=== PATIENT | female | born 1980 | race African-American/Black ===

== ENCOUNTER 2019-06-11 17:44 | Emergency (ER) | payer SELFPAY ==
[~2019-06-11 17:44] MED LIST: Iopamidol-370 76% 500 ML 1 ML ONE
[2019-06-11 19:03] LABS: #Eosinphils 0.2 thou/uL (0.0-0.7); #Lymphocytes 2.3 thou/uL (1.20-3.40); #Monocytes 0.5 thou/uL (0.11-0.59); #Neutrophils 3.8 thou/uL (1.40-6.50); %Basophils 0.1 % (0.0-1.0); %Eosinophils 3.1 % (0.0-10.0); %Lymphocytes 33.7 % (21.0-51.0); %Monocytes 7.1 % (0.0-10.0); Hemoglobin 12.3 g/dL (12.0-16.0); Mean Corpuscular HGB CONC 32.8 g/dL (32.0-36.0); Mean Corpuscular Hemoglobin 28.8 pg (27.0-31.0); Mean Corpuscular Volume 87.8 fL (78.0-98.0); Mean Platelet Volume 8.6 fL (7.4-10.4); Platelet Count 178 thou/uL (130-400); RBC Distribution Width 14.5 % (11.5-14.5); Red Blood Cell (RBC) Count 4.26 mill/uL (4.20-5.40); White Blood Cell (WBC) Count 6.8 thou/uL (4.8-10.8)
--- NOTE | 2019-06-11 19:03 | RAD ---
Abdomen one view HISTORY: Abdominal pain. FINDINGS: Large amount of stool overlies the colon. Small bowel gas pattern is nonspecific. Phlebolit hs project over the pelvis. No radiopaque foreign bodies. IMPRESSION: Constipation.
[2019-06-11 19:10] LABS: BHCG - Serum Negative (NEGATIVE); Pregs Control Background? CLEAR/WHITE (CLR/WHITE); Pregs Control Bar Appear? YES (CONTROL BAR)
[2019-06-11 19:14] LABS: MDiff Complete? YES; Platelet Clumps SLIGHT; Platelet Morphology Comment Appears Adequate; RBC Morphology Normal
[2019-06-11] MEDS ORDERED: Ondansetron ODT 4 MG TAB ONE (19:21)
[2019-06-11 19:26] LABS: ALT (SGPT) 18 U/L (8-55); AST (SGOT) 25 U/L (5-34); Albumin 3.9 g/dL (3.5-5.0); Alkaline Phosphatase 52 U/L (40-110); Anion Gap 16 mmol/L (10-20); BUN (Urea Nitrogen) 12 mg/dL (7.0-18.7); Bilirubin, Total 0.3 mg/dL (0.2-1.2); Calc. Creatinine Clearance 0 mL/min (70-130); Calcium 9.3 mg/dL (7.8-10.44); Carbon Dioxide 22 mmol/L (22-29); Chloride 104 mmol/L (98-107); Estimated GFR-MDRD 83; Globulin 4.6 g/dL (2.4-3.5); Glucose 77 mg/dL (70-105); Lipase 24 U/L (8-78); Potassium 5.6 mmol/L (3.5-5.1); Protein, Total 8.5 g/dL (6.0-8.3); Sodium 136 mmol/L (136-145)
[2019-06-11 19:31] LABS: Bilirubin Negative (Negative); Blood, Urine Negative (Negative); Clarity Clear (Clear); Glucose, Urine (Dipstick) Normal (Negative); Leukocyte Negative Leu/uL (Negative); Nitrite Negative (Negative); Protein, Urine (Dipstick) Negative (Neg-Trace); Urobilinogen 3 mg/dL (Less than 2)
--- NOTE | 2019-06-11 21:00 | CT ---
CT abdomen and pelvis with IV contrast HISTORY: Abdominal pain. Nausea vomiting. FINDINGS: The lung bases are clear. Calcified granulomata of the spleen are consistent with healed gr anulomatous disease. The liver, kidneys, adrenal glands, and pancreas have a normal CT appearance. No enlarged lymph nodes or free fluid. Urinary bladder is incompletely distended. Uterus has a heterogeneous density and measures up to 15.4 cm length by 9.5 cm depth. No significant free fluid. Appendix appears surgically absent. Large amount of stool throughout the colon. IMPRESSION: Heterogeneous, enlarged uterus, consistent with fibroid involvement. Constipation.
[2019-06-11] MEDS ORDERED: GoLYTELY 4,000 ml Bottle PO SCH (21:30)
== END 2019-06-11 21:42 ==
LOC: ERS 17:44
DX: K59.00 Constipation, unspecified (principal); D25.9 Leiomyoma of uterus, unspecified; E03.9 Hypothyroidism, unspecified; I10 Essential (primary) hypertension; J45.909 Unspecified asthma, uncomplicated; D64.9 Anemia, unspecified; Z87.891 Personal history of nicotine dependence; Z79.899 Other long term (current) drug therapy
CPT/HCPCS: 36415; 74018; 74177; 80053; 81003; 83690; 84703; 85025; Q0162; Q9967

== ENCOUNTER 2020-03-17 17:15 | Inpatient (IN) | payer OTHER ==
[2020-03-17] MEDS ORDERED: Ondansetron PF 4 MG/2 ML Vial ONE ×2 (17:31→19:24)
--- NOTE | 2020-03-17 17:49 | RAD ---
PORTABLE CHEST: 03/17/20 PROVIDED CLINICAL HISTORY: Chest pain. FINDINGS: The cardiac silhouette appears enlarged, which may be at least partially on the basis of portable mitchell hnique. No focal consolidation, pleural fluid, or pneumothorax apparent. IMPRESSION: No evidence for an acute cardiopulmonary process. POS: AKBAR
[2020-03-17 18:07] LABS: #Eosinphils 0.2 thou/uL (0.0-0.7); #Lymphocytes 2.7 thou/uL (1.20-3.40); #Monocytes 0.4 thou/uL (0.11-0.59); %Basophils 0.1 % (0.0-1.0); %Eosinophils 2.5 % (0.0-10.0); %Lymphocytes 32.7 % (21.0-51.0); %Monocytes 4.9 % (0.0-10.0); %Neutrophils 59.9 % (42.0-75.0); Hemoglobin 13.1 g/dL (12.0-16.0); Mean Corpuscular HGB CONC 32.6 g/dL (32.0-36.0); Mean Corpuscular Hemoglobin 28.7 pg (27.0-31.0); Mean Platelet Volume 8.2 fL (7.4-10.4); Platelet Count 174 thou/uL (130-400); RBC Distribution Width 13.5 % (11.5-14.5); Red Blood Cell (RBC) Count 4.59 mill/uL (4.20-5.40); White Blood Cell (WBC) Count 8.3 thou/uL (4.8-10.8)
[2020-03-17 18:16] LABS: BHCG - Serum Negative (NEGATIVE); Pregs Control Background? CLEAR/WHITE (CLR/WHITE); Pregs Control Bar Appear? YES (CONTROL BAR)
[2020-03-17 18:25] LABS: ALT (SGPT) 13 U/L (8-55); AST (SGOT) 19 U/L (5-34); Albumin 4.1 g/dL (3.5-5.0); Alkaline Phosphatase 37 U/L (40-110); Anion Gap 19 mmol/L (10-20); BUN (Urea Nitrogen) 13 mg/dL (7.0-18.7); Bilirubin, Total 0.3 mg/dL (0.2-1.2); Calc. Creatinine Clearance 0 mL/min (70-130); Calcium 9.6 mg/dL (7.8-10.44); Carbon Dioxide 21 mmol/L (22-29); Chloride 102 mmol/L (98-107); Estimated GFR-MDRD 42; Globulin 4.4 g/dL (2.4-3.5); Glucose 133 mg/dL (70-105); Potassium 4.4 mmol/L (3.5-5.1); Protein, Total 8.5 g/dL (6.0-8.3); Sodium 138 mmol/L (136-145)
[2020-03-17 18:51] LABS: CKMB 0.9 ng/mL (0-6.6)
--- NOTE | 2020-03-17 19:09 | CT ---
CT BRAIN 03/17/20 PROVIDED CLINICAL HISTORY: Syncope. FINDINGS: No comparison. The ventricular system appears normal in size and morphology. There is no evidence for intracranial h emorrhage or mass effect. The extracranial soft tissues and osseous structures demonstrate an unremar kable CT appearance. IMPRESSION: No evidence for intracranial hemorrhage or mass effect. POS: AKBAR
[2020-03-17 19:17] LABS: INR-International Normal Ratio 1.1
--- NOTE | 2020-03-17 19:18 | CT ---
CT PULMONARY ANGIOGRAM WITH IV CONTRAST AND 3D MIP RECONSTRUCTIONS: 03/17/20 PROVIDED CLINICAL HISTORY: Syncope. FINDINGS: There is extensive bilateral filling defects within the pulmonary arterial system compatible with emb ronald. There is near occlusion of the distal left main pulmonary artery. There is a dilated main pulmon jayde artery segment and straightening of the intraventricular septum suggesting elevated pulmonary art erial pressures. The lung parenchyma is free of significant opacity. There is no pleural fluid or pneumothorax apparen t. The airway appears patent and of normal caliber. The visualized portions of the upper abdomen demonstrate no acute abnormality. There is no evidence f or thoracic lymph node enlargement. The osseous structures demonstrate no concerning lytic or blastic lesions. IMPRESSION: Extensive bilateral pulmonary emboli with findings suggesting RV strain. Findings discussed with Dr. Hooper via telephone, 7:10 p.m., 03/17/20. Code CR POS: AKBAR
[2020-03-17] MEDS ORDERED: Norepinephrine 8 MG/0.9% NS 250 ML ONE (19:25)
[2020-03-17] MEDS ORDERED: Promethazine HCl 25 MG/ML VIAL ONE (19:53)
[2020-03-17 20:23] LABS: SARS-CoV-2 NAA Rapid Test Not Detected (NotDetected)
[2020-03-17] MEDS ORDERED: Acetaminophen 325 MG TAB PO PRN (22:04)
[2020-03-17] MEDS ORDERED: Acetaminophen 650 MG Suppository PR PRN (22:04)
[2020-03-17] MEDS ORDERED: Guaifenesin DM 100-10/5 ML UDCUP PO PRN (22:04)
--- NOTE | 2020-03-17 22:14 | PDOC.HHP ---
Hospitalist HPI - History of Present Illness syncope / massive PE History of Present Illness: Case of an 40y/o female with a pmhx of htn and bronchial asthma who comes to hospital after suffering a syncope. patient states she was on her usual state health until today when she reports some leg pain in her R calf and some headache. she reports she went to exercise and had an episode of syncope. when she woke up she stated was having severe chest pain 10/10 that radiated to her neck with associated b/l hand numbness palpitations dyspnea and diaphoresis. EMS picked her up noted her blood pressure to be in the 130 systolic range and due to her chest pain treated her with 0.4 mcg of nitroglycerin. Upon arrival patient was diaphoretic with blood pressure in the 80s to 90 systolic range. patient was diagnosed with a massive PE with cardiovascular collapse for which she was started on TPA protocol and on pressors. hospitalist was called for further evaluation and management. OF note patient was placed on the isolation dean due to recent contact with a covid 19 positive patient Hospitalist ROS - Review of Systems All other systems reviewed; all pertinent +/- noted in HPI/Subj Hospitalist History - Past Surgical History Past Surgical History: reports: Appendectomy - Family History Family History: reports: no pertinent history - Social History Smoking Status: Former smoker Alcohol: reports: None Drugs: reports: none Living Situation: Other - Exam General Appearance: ill appearing Eye: PERRL, anicteric sclera ENT: normocephalic atraumatic, no oropharyngeal lesions Neck: supple, symmetric, no JVD Heart: no murmur, no gallops, no rubs, normal peripheral pulses Heart - other findings: tachycardic Respiratory: CTAB, no wheezes, no rales, no ronchi, tachypneic Gastrointestinal: soft, non-tender, non-distended, normal bowel sounds Extremities: no cyanosis, no clubbing, no edema Extremities - other findings: R milling machine tender to palpation Skin: normal turgor, no lesions Neurological: cranial nerve grossly intact, normal sensation to touch, no weakness Musculoskeletal: normal tone, normal strength, no muscle wasting Psychiatric: normal affect, normal behavior, A&O x 3 Hospitalist Results - Labs Result Diagrams: 03/17/20 17:50 03/17/20 17:50 Lab results: WBC 8.3 thou/uL (4.8-10.8) 03/17/20 17:50 Hgb 13.1 g/dL (12.0-16.0) 03/17/20 17:50 Hct 40.4 % (36.0-47.0) 03/17/20 17:50 MCV 88.0 fL (78.0-98.0) 03/17/20 17:50 Plt Count 174 thou/uL (130-400) 03/17/20 17:50 Neutrophils % 59.9 % (42.0-75.0) 03/17/20 17:50 Sodium 138 mmol/L (136-145) 03/17/20 17:50 Potassium 4.4 mmol/L (3.5-5.1) 03/17/20 17:50 Chloride 102 mmol/L (98-107) 03/17/20 17:50 Carbon Dioxide 21 mmol/L (22-29) L 03/17/20 17:50 BUN 13 mg/dL (7.0-18.7) 03/17/20 17:50 Creatinine 1.40 mg/dL (0.6-1.1) H 03/17/20 17:50 Glucose 133 mg/dL (70-105) H 03/17/20 17:50 Calcium 9.6 mg/dL (7.8-10.44) 03/17/20 17:50 Total Bilirubin 0.3 mg/dL (0.2-1.2) 03/17/20 17:50 AST 19 U/L (5-34) 03/17/20 17:50 ALT 13 U/L (8-55) 03/17/20 17:50 Alkaline Phosphatase 37 U/L (40-110) L 03/17/20 17:50 CK-MB (CK-2) 0.9 ng/mL (0-6.6) 03/17/20 17:50 Troponin I 0.092 ng/mL (< 0.028) H 03/17/20 17:50 B-Natriuretic Peptide 10.1 pg/mL (0-100) 03/17/20 17:50 Serum Total Protein 8.5 g/dL (6.0-8.3) H 03/17/20 17:50 Albumin 4.1 g/dL (3.5-5.0) 03/17/20 17:50 Hospitalist H&P A/P - Problem (1) Acute massive pulmonary embolism Code(s): I26.99 - OTHER PULMONARY EMBOLISM WITHOUT ACUTE COR PULMONALE Status: Acute (2) HTN (hypertension) Code(s): I10 - ESSENTIAL (PRIMARY) HYPERTENSION Status: Acute (3) Morbidly obese Code(s): E66.01 - MORBID (SEVERE) OBESITY DUE TO EXCESS CALORIES Status: Acute (4) Syncope Code(s): R55 - SYNCOPE AND COLLAPSE Status: Acute - Plan Plan: 40y/o female with the stated pmhx who presents to hospital due to massive PE with cardiovascular collapse Pulmonary embolism - classic ekg of PE with s wave in 1, q wave in 3, and inverted t on 3 - cxr showing borderline cardiomegaly - cta showing PE with heart strain - cardiovascular collapse on levophed and vasopressin - elevated troponin will continue to trend - TPA protocol - pulmo / crit consulted - 02 supplementation - cardiology evaluation - 2d echo - will hold OCPs syncope - secondary to above louann - elevated creatinine 1.4, no hx of ckd - ivfs - f/u bmp and u/o htn - holding medication due to hypotension on vasoppressors
[2020-03-17] MEDS ORDERED: Norepinephrine 8 MG/0.9% NS 250 ML IVPB SCH (22:15)
[2020-03-17] MEDS ORDERED: Morphine 2 MG/ML VIAL SLOW IVP PRN (22:16)
[2020-03-17 23:20] LABS: ALT (SGPT) 13 U/L (8-55); AST (SGOT) 18 U/L (5-34); Albumin 3.6 g/dL (3.5-5.0); Alkaline Phosphatase 35 U/L (40-110); Anion Gap 19 mmol/L (10-20); BUN (Urea Nitrogen) 13 mg/dL (7.0-18.7); Bilirubin, Total 0.4 mg/dL (0.2-1.2); Calc. Creatinine Clearance 0 mL/min (70-130); Calcium 8.4 mg/dL (7.8-10.44); Carbon Dioxide 16 mmol/L (22-29); Chloride 106 mmol/L (98-107); Estimated GFR-MDRD 52; Globulin 3.6 g/dL (2.4-3.5); Glucose 164 mg/dL (70-105); Potassium 4.1 mmol/L (3.5-5.1); Protein, Total 7.2 g/dL (6.0-8.3); Sodium 137 mmol/L (136-145)
[2020-03-17 23:25] LABS: Band 23 % (5-11); Hemoglobin 13.4 g/dL (12.0-16.0); Lymphocytes 5 % (21-51); MDiff Complete? YES; Mean Corpuscular HGB CONC 32.4 g/dL (32.0-36.0); Mean Corpuscular Hemoglobin 29.1 pg (27.0-31.0); Mean Corpuscular Volume 89.9 fL (78.0-98.0); Mean Platelet Volume 7.9 fL (7.4-10.4); Monocytes 4 % (0-10); Neutrophil 68 % (42-75); Platelet Count 189 thou/uL (130-400); Platelet Morphology Comment Appears Adequate; RBC Distribution Width 13.3 % (11.5-14.5); RBC Morphology Normal; White Blood Cell (WBC) Count 20.1 thou/uL (4.8-10.8)
[2020-03-17 23:27] LABS: Troponin I 1.236 ng/mL (< 0.028)
[2020-03-17] MEDS ORDERED: Morphine 4 MG/ML VIAL ONE (23:36)
[2020-03-18 01:26] LABS: PTT 53.9 sec (22.9-36.1); Prothrombin Time 52.3 sec (12.0-14.7)
[2020-03-18 01:44] LABS: INR-International Normal Ratio 5.6
[2020-03-18 02:04] LABS: Troponin I 1.272 ng/mL (< 0.028)
[2020-03-18 03:04] LABS: Fibrinogen Less than 15 mg/dL (253-463)
[2020-03-18] MEDS ORDERED: Famotidine/PF 20 mg/2ml Vial SLOW IVP SCH (09:00)
== END 2020-03-18 02:15 | disposition home or self-care (01) | DRG 175 ==
LOC: EEVIPCON 17:15 → ERS 17:15 → ERHOLD 21:11
PROVIDERS: ADMIT Internal Medicine; ATTEND Internal Medicine
PROC: 02HV33Z Insertion of Infusion Device into Superior Vena Cava, Percutaneous Approach (ICD-10-PCS; principal; 2020-03-17)
PROC: 3E043XZ Introduction of Vasopressor into Central Vein, Percutaneous Approach (ICD-10-PCS; 2020-03-17)
PROC: 3E04317 Introduction of Other Thrombolytic into Central Vein, Percutaneous Approach (ICD-10-PCS; 2020-03-17)
DX: I26.99 Other pulmonary embolism without acute cor pulmonale (principal); R57.0 Cardiogenic shock; N17.9 Acute kidney failure, unspecified; D64.9 Anemia, unspecified; E03.9 Hypothyroidism, unspecified; E28.2 Polycystic ovarian syndrome; I10 Essential (primary) hypertension; J45.909 Unspecified asthma, uncomplicated; Z88.0 Allergy status to penicillin; Z88.5 Allergy status to narcotic agent; Z79.899 Other long term (current) drug therapy; Z79.51 Long term (current) use of inhaled steroids
CPT/HCPCS: 36415; 36556; 70450; 71045; 71275; 80053; 82553; 83605; 83880; 84484; 84703; 85025; 85379; 85384; 85610; 85730; 87040; 93005; 96365; 96366; 96368; 96375; 96376; 99292; J2270; J2405; J2550; J2997; Q9967; U0002

== ENCOUNTER 2020-06-14 09:03 | Outpatient (CLI) | payer OTHER ==
--- NOTE | 2020-06-14 09:31 | ULT ---
ULTRASOUND OF THE THYROID GLAND: DATE: 06/14/2020. COMPARISON: None available. HISTORY: Thyromegaly. TECHNIQUE: Multiplanar grayscale sonographic imaging of thethyroid gland provided. FINDINGS: Isthmus measures 4 mm, right lobe measures 2.0 x 4.7 x 1.6 cm and left lobe measures 1.7 x 4.5 x 1.4 cm. A relatively vague echogenic nodule is noted within the lateral mid right lobe measuring 8 x 5 x 5 mm . There is an anterior medial solid hypoechoic nodule at the junction of the right lobe and isthmus wit h an internal punctate calcification measuring 7 x 6 x 7 mm. No discrete nodule is seen on the left. IMPRESSION: TI-RADS 5, highly suspicious. Solid hypoechoic nodule with internal punctate calcification measures o nly up to 7 mm and thus, annual follow-up is advised. If this lesion pricilla to 1 cm on follow-up imaging then needle aspiration would be recommended per TI-RADS recommendations. Transcribed Date/Time: 06/14/2020 9:57 AM
== END 2020-06-14 09:04 | disposition home or self-care (01) ==
LOC: BICULT 09:03
PROVIDERS: ATTEND Family Medicine
DX: E04.9 Nontoxic goiter, unspecified (principal); E04.1 Nontoxic single thyroid nodule
CPT/HCPCS: 76536

== ENCOUNTER 2020-08-09 21:21 | Emergency (ER) | payer OTHER ==
[2020-08-09] MEDS ORDERED: Ketorolac Tromethamine 30 MG/ML VIAL ONE (22:21)
[2020-08-09] MEDS ORDERED: Acetaminophen 500 MG TAB ONE (22:21)
[2020-08-09] MEDS ORDERED: Ondansetron ODT 4 MG TAB ONE (22:39)
== END 2020-08-09 22:41 ==
LOC: ERS 21:21
DX: R55 Syncope and collapse (principal); Z79.899 Other long term (current) drug therapy
CPT/HCPCS: 70450; 93005; 96372; J1885; Q0162

== ENCOUNTER 2020-10-11 19:13 | Emergency (ER) | payer OTHER ==
[2020-10-11 20:35] LABS: #Eosinphils 0.1 thou/uL (0.0-0.7); #Monocytes 0.4 thou/uL (0.11-0.59); #Neutrophils 3.3 thou/uL (1.40-6.50); %Basophils 0.8 % (0.0-1.0); %Eosinophils 2.2 % (0.0-10.0); %Neutrophils 55.9 % (42.0-75.0); Hemoglobin 12.8 g/dL (12.0-16.0); Mean Corpuscular HGB CONC 33.2 g/dL (32.0-36.0); Mean Corpuscular Hemoglobin 28.5 pg (27.0-31.0); Mean Corpuscular Volume 85.7 fL (78.0-98.0); Mean Platelet Volume 8.9 fL (7.4-10.4); Platelet Count 231 thou/uL (130-400); RBC Distribution Width 14.7 % (11.5-14.5); Red Blood Cell (RBC) Count 4.49 mill/uL (4.20-5.40); White Blood Cell (WBC) Count 5.8 thou/uL (4.8-10.8)
[2020-10-11 20:51] LABS: BHCG - Serum Negative (NEGATIVE); Pregs Control Background? CLEAR/WHITE (CLR/WHITE); Pregs Control Bar Appear? YES (CONTROL BAR)
[2020-10-11 20:56] LABS: ALT (SGPT) 14 U/L (8-55); AST (SGOT) 18 U/L (5-34); Albumin 4.4 g/dL (3.5-5.0); Alkaline Phosphatase 52 U/L (40-110); Anion Gap 12 mmol/L (10-20); BUN (Urea Nitrogen) 15 mg/dL (7.0-18.7); Bilirubin, Total 0.3 mg/dL (0.2-1.2); Calc. Creatinine Clearance 0 mL/min (70-130); Carbon Dioxide 24 mmol/L (22-29); Chloride 104 mmol/L (98-107); Globulin 4.3 g/dL (2.4-3.5); Glucose 88 mg/dL (70-105); Potassium 4.1 mmol/L (3.5-5.1); Protein, Total 8.7 g/dL (6.0-8.3); Sodium 136 mmol/L (136-145)
[2020-10-11] MEDS ORDERED: Ketorolac Tromethamine 30 MG/ML VIAL ONE (21:09)
[2020-10-11] MEDS ORDERED: Ondansetron PF 4 MG/2 ML Vial ONE (21:09)
[2020-10-11] MEDS ORDERED: Acetaminophen 500 MG TAB ONE (22:10)
== END 2020-10-11 22:30 ==
LOC: ERS 19:13
DX: S09.90XA Unspecified injury of head, initial encounter (principal); S16.1XXA Strain of muscle, fascia and tendon at neck level, initial encounter; R55 Syncope and collapse; I10 Essential (primary) hypertension; J45.909 Unspecified asthma, uncomplicated; Z87.891 Personal history of nicotine dependence; X58.XXXA Exposure to other specified factors, initial encounter
CPT/HCPCS: 36415; 70450; 71045; 71275; 72125; 80053; 84484; 84703; 85025; 93005; 96374; 96375; J1885; J2405